=== PATIENT | female | born 1930 | race Caucasian/White ===

== ENCOUNTER 2016-12-21 18:11 | Emergency (ER) | payer MEDICARE, BC ==
--- OUTSIDE RECORDS SUMMARY | 2016-12-21 18:33 | XMS REPORT | Continuity of Care Document ---
:1930 Author Organization [facility] ([facility]) Address [address] [place] [address] Phone [phone] Care Team Providers Name Role Phone EleazarRicardo ramirez Primary Care Provider [phone] Source Comments This disclosure is being made pursuant to the Care Everywhere program, applicable federal and state laws, and may not contain all informaitonavailable regarding this patient.[facility] ([facility]) Active Allergies and Adverse Reactions Allergen Noted Date Severity Reactions Comments Codeine 10/04/2013 Nausea & Vomiting Current Medications Prescription Sig. Disp. Refills Start Date End Date Status aMILoride-hydrochlor Take 1 Tab by Active othiazide 5-50 mg mouth daily. Take per tablet with food. docusate 100 mg Take 100 mg by Active capsule mouth 2 times daily as needed. lisinopril 40 mg Take 40 mg by Active tablet mouth daily. omeprazole 20 mg Take 20 mg by Active extended release mouth daily. capsule sennosides 8.6 mg Take 2 tablets by Active tablet mouth 2 times daily. polyethylene glycol 08/15/2016 Active 3350 (MIRALAX) 17 gram/dose powder NITROSTAT 0.[address] 1 tablet 1 08/11/2016 Active tablet under tongue every 5 minutes for 3 doses. If no relief call 911 levothyroxine 150 Take 150 mcg by 1 06/03/2016 Active mcg tablet mouth daily. lactulose 10 g/15 mL TAKE ONE 1 07/30/2016 Active solution TABLESPOON BY MOUTH NEEDED isosorbide Take 30 mg by 0 08/08/2016 Active mononitrate 30 mg CR mouth daily. tablet clopidogrel 75 mg Take 75 mg by 0 08/08/2016 Active tablet mouth daily. carvedilol 3.125 mg Take 3.125 mg by 0 08/08/2016 Active tablet mouth 2 times daily. aspirin 81 mg EC Take 81 mg by Active tablet mouth daily. aspirin 325 mg EC take 1 tablet 01/11/2013 11/27/2016 Discontinued tablet 81mg daily rosuvastatin 10 mg Take 10 mg by 0 08/08/2016 11/26/2016 Discontinued tablet mouth at bedtime. Active Problems Problem Noted Date Colon cancer 10/17/2013 Most Recent Encounters Date Type Specialty Providers Description 11/26/2016 Office Visit [facility]issy Shabazz, Dx: Aortic valve DO stenosis, unspecified etiology (Primary Dx) 10/14/2016 Office Visit [facility] Mary Theodore MD Chief Comp: Patient Reported Reason For Visit Social History Tobacco Use Types Packs/Day Years Used Date Former Smoker Cigarettes Smokeless Tobacco: Never Used Last Filed Vital Signs Vital Sign Reading Time Taken Blood Pressure 140/70 11/26/2016 9:50 AM [facility] Pulse 60 11/26/2016 9:50 AM [facility] Temperature 36.3 C (97.3 F) 10/17/2013 12:27 PM [facility] Respiratory Rate 16 10/17/2013 12:27 PM [facility] Height 1.626 m (5' 4") 11/26/2016 9:50 AM [facility] Weight 50.803 kg (112 lb) 11/26/2016 9:50 AM [facility] Body Mass Index 19.22 11/26/2016 9:50 AM [facility] Oxygen Saturation - - Plan of Care Date Type Specialty Providers Description 03/18/2017 Appointment [facility] Krissy Shabazz, Chief Comp: Patient DO Reported Reason For [address] [place] [address] [phone] (Fax) Health Maintenance Due Date Last Done Comments Hepatitis B Vaccine (1 of 3 - Primary Series) 1930 Tdap Vaccine 1941 Lipid Disorder Screening 1948 Td Vaccine 1948 Colonoscopy 12/22/1980 Zoster Vaccine 1990 Osteoporosis Screening (DXA Bone Density) 12/24/1995 Pneumococcal Vaccine (1 of 2 - PCV13) 12/24/1995 Influenza Vaccine: Seasonal (#1) 05/05/2016 Results from Last 3 Months Not on file
--- NOTE | 2016-12-21 18:51 | ERNOTE ---
Medical Problem HPI - General Time Seen by Provider: 12/21/16 18:26 Source: patient, family Exam Limitations: no limitations - Immun/Allergies/Home Medications Immunizations: IMMUNIZATION HX Immunizations Up to Date Yes History of Influenza Vaccine Yes Hx Pneumococcal Vaccination Yes Allergies/Adverse Reactions: Allergies codeine Adverse Reaction (Mild, Verified 08/05/16 10:44) Nausea Home Medications: HOME MEDICATIONS Aspirin [Aspirin Enteric Coated] 81 mg PO DAILY 12/21/16 [Last Taken Unknown] Carvedilol [Coreg] 3.125 mg PO BID 12/21/16 [Last Taken Unknown] Clopidogrel Bisulfate [Plavix] 75 mg PO DAILY 12/21/16 [Last Taken Unknown] Docusate Sodium [Colace] 100 mg PO DAILY 12/21/16 [Last Taken Unknown] Hydrochlorothiazide [Hydrodiuril] 25 mg PO DAILY 12/21/16 [Last Taken Unknown] Isosorbide Mononitrate [Imdur] 30 mg PO DAILY 12/21/16 [Last Taken Unknown] Levothyroxine Sodium [Synthroid] 150 mcg PO DAILY 12/21/16 [Last Taken Unknown] Lisinopril [Zestril] 40 mg PO DAILY 12/21/16 [Last Taken Unknown] Nitroglycerin 0.4 mg SL Q5MIN 12/21/16 [Last Taken Unknown] Omeprazole [Prilosec] 20 mg PO DAILY 12/21/16 [Last Taken Unknown] Polyethylene Glycol 3350 [Miralax] 17 gm PO BID 12/21/16 [Last Taken Unknown] Sennosides [Senokot] 2 tab PO DAILY 12/21/16 [Last Taken Unknown] - History of Present History Narrative: Patient woke up during the night around 02:00 to go to the bathroom when she noticed that her heart was beating fast. She used her blood pressure machine which showed a HR in 120-130's. She checked it repeatedly and eventually took a nitro and the palpitations resolved ( she never had any chest pain), heart racing lasted for about 2 hours. Since then she has checked her blood pressure frequently and has had multiple high readings, and essentially comes now for the high blood pressure, last reading at home 190/115, she took her evening medication about an hour prior to coming here. She currently has not symptoms. In August 2016 she was diagnosed with a MS, choose not to have any further intervention but was treated medically. Review of Systems - Review of Systems Constitutional: Absent: recent illness, fever ENT: Absent: nose congestion, sore throat Respiratory: Present: shortness of breath - occasionally with activity. Absent : cough Cardiology: Present: See HPI, palpitations. Absent: chest pain Gastrointestinal/Abdominal: Absent: nausea, vomiting, diarrhea, abdominal pain Genitourinary: Absent: frequency Musculoskeletal: Present: no symptoms reported Skin: Present: no symptoms reported Neurological: Absent: weakness, numbness - Patient's Past Medical History Patient History - Medical: Anemia, Chronic Pain, Hypothyroidism, Other Patient History - Cardiac/Respiratory: Coronary Heart Disease, CHF, Hypertension Patient History - Cancer: Colon, Skin Patient History - Surgical Procedures: Back Surgery, Cataracts, Colon Resection , Colonoscopy, EGD, Other Patient History - Other: None - Family History Mother Family History - Medical: , Diabetes Type 1 Family History - Cardiac/Respiratory: Coronary Heart Disease, Hypertension Father Family History - Medical: , History Unknown - Social History Living Situations: home Abuse History: No History of abuse Psych History: No pertinent hx Does anyone smoke in the home?: No Smoking Status: Never smoker Alcohol Use: none Drug Use: none - Immunizations Immunizations Up to Date: Yes Hx Pneumococcal Vaccination: Yes History of Influenza Vaccine: Yes Physical Exam - Physical Exam General Appearance: Present: wd/wn, alert, no apparent distress Eye Exam: Normal inspection: bilateral, PERRL: bilateral Respiratory: Present: no respiratory distress, normal breath sounds, no accessory muscle use, lungs clear Cardiovascular/Chest: Present: regular rate, rhythm, no murmur Gastrointestinal/Abdominal: Present: normal bowel sounds, nontender, soft Extremity Exam: Present: pedal edema - trace bilateral Neurological Exam: Present: alert, oriented, normal mood/affect Skin Exam: Present: normal color, warm/dry ED Progress - Vital Signs Patient's Vital Signs:: I have reviewed the patient's vital signs. Vital Signs: Vital Signs 12/21/16 18:27 Temperature 36.2 C L Pulse Rate 73 Respiratory 18 Rate Blood Pressure 156/96 O2 Sat by Pulse 99 Oximetry - EKG EKG: NSR - sinusbrady 56, SC - 1st degree AV block, unchanged from 08/20 except for rate EKG read: Interp. by me Departure - Departure Clinical Impression: Palpitation Hypertension Qualifiers: Hypertension type: essential hypertension Qualified Code(s): I10 - Essential ( primary) hypertension Disposition: Home self-care Condition: Good Instructions: Hypertension, [id number] Additional Instructions: take all your medications as instructed if your heart races again and does not go back to normal rhythm on its own come to the ER Referrals: Ricardo Bush MD [Primary Care Provider] -
[2016-12-21 19:07] VITALS: BP 134/71
== END 2016-12-21 19:09 | disposition home or self-care (01) ==
LOC: ER 18:11
DX: R00.2 Palpitations (principal); I10 Essential (primary) hypertension; E03.9 Hypothyroidism, unspecified; I50.9 Heart failure, unspecified; I25.2 Old myocardial infarction; G89.29 Other chronic pain

== ENCOUNTER 2017-05-31 11:18 | Emergency (ER) | payer MEDICARE, BC ==
--- NOTE | 2017-05-31 12:23 | ERNOTE ---
Neuro HPI ER Record Date of Service: 05/31/17 Presenting Symptoms: other - syncopal episode Time Seen by Provider: 05/31/17 11:42 Source: patient - here with family leigh ann Immunizations: IMMUNIZATION HX Immunizations Up to Date Yes History of Influenza Vaccine Yes Hx Pneumococcal Vaccination Yes Allergies/Adverse Reactions: Allergies Allergy/AdvReac Type Severity Reaction Status Date / Time codeine AdvReac Mild Nausea Verified 08/05/16 10:44 Home Medications: HOME MEDICATIONS Aspirin [Aspirin Enteric Coated] 81 mg PO DAILY 12/21/16 [Last Taken Unknown] Carvedilol [Coreg] 3.125 mg PO BID 12/21/16 [Last Taken Unknown] Clopidogrel Bisulfate [Plavix] 75 mg PO DAILY 12/21/16 [Last Taken Unknown] Docusate Sodium [Colace] 100 mg PO DAILY 12/21/16 [Last Taken Unknown] Isosorbide Mononitrate [Imdur] 30 mg PO DAILY 12/21/16 [Last Taken Unknown] Levothyroxine Sodium [Synthroid] 150 mcg PO DAILY 12/21/16 [Last Taken Unknown] Lisinopril [Zestril] 40 mg PO DAILY 12/21/16 [Last Taken Unknown] Nitroglycerin 0.4 mg SL Q5MIN 12/21/16 [Last Taken Unknown] Omeprazole [Prilosec] 20 mg PO DAILY 12/21/16 [Last Taken Unknown] Polyethylene Glycol 3350 [Miralax] 17 gm PO BID 12/21/16 [Last Taken Unknown] Sennosides [Senokot] 2 tab PO DAILY 12/21/16 [Last Taken Unknown] Furosemide 20 mg PO 3XW 05/31/17 [Last Taken Unknown] L. Acidophilus/L. Rhamnosus [Probiotic 15 Billion Cell Cap] 1 each PO DAILY # 100 capsule 05/31/17 [Last Taken Unknown] Lactulose [Enulose] 60 ml PO QID 05/31/17 [Last Taken Unknown] - History of Present Illness Narrative: Patient is an 86-year-old female established patient of Dr. Bush presents today with a syncopal episode at [facility]. She remembers the events she states that she got very hot when she was sitting in the PICU she took her jacket off and was standing up for the Gospel and then ended up next thing she knew she opened her eyes and someone was tearing out her asking her if she was okay she was sitting next to her niece who was with her stated that her eyes were wide open but they became pinpoint and she was out for a few seconds she denied any associated chest pain or shortness of breath she denied any headaches dizziness vision changes she denied any neurologic deficits at the time of the episode. There is no evidence of urinary or stool incontinence that she had no abnormal tonic-clonic movements. Date (Duration): 05/31/17 Time (Timing): 10:45 Last Date Known Well: 05/31/17 Last Time Known Well: 10:30 Onset: sudden onset Severity: moderate Context: other - no fall was noted she immediately was sat down and lay down across the PICU at [facility]. - Character of Deficits New weakness: Present: other - no new weakness or asymmetry of neurologic findings. Altered sensation: Present: other - loss of consciousness was transient she was not amnestic of events. Additional Deficits: Present: decrease ability to stand, other - patient does have known debility and difficulty with walking long distances. She denied any associated cardiovascular symptoms such as shortness of breath or chest pain. Baseline Cognition: Present: alert, oriented x 4 Baseline Gait: Present: other - baseline gait requires assistance of one Associated Symptoms: Reports: other - patient had a brief loss of consciousness witnessed. Prior Treament: Reports: recently hospitalized - patient was admitted in December for CO. She did not have a cardiac catheterization but she did have a confirmation of a nuclear medicine stress test. Review of Systems - Narrative Narrative: Please see the HPI portion as well. - Review of Systems Constitutional: Present: See HPI EYE: Present: no symptoms reported ENT: Present: no symptoms reported Respiratory: Present: no symptoms reported Cardiology: Present: no symptoms reported Gastrointestinal/Abdominal: Present: no symptoms reported Genitourinary: Present: frequency, other - resolving urinary tract infection completing antibiotic cephalexin currently. Musculoskeletal: Present: other - chronic lower extremity debilitated due to arthritis. Skin: Present: no symptoms reported Neurological: Present: no symptoms reported Endocrine: Present: no symptoms reported Hematologic/Lymphatic: Present: easy bruising - reports easy bruising due to anticoagulation With Plavix All Other Systems: All systems neg except as marked - Patient's Past Medical History Patient History - Medical: Anemia, Chronic Pain, Hypothyroidism, Other Patient History - Cardiac/Respiratory: Coronary Heart Disease, CHF, Hypertension Patient History - Cancer: Colon, Skin Patient History - Surgical Procedures: Back Surgery, Cataracts, Colon Resection , Colonoscopy, EGD, Other Patient History - Other: None - Family History Mother Family History - Medical: , Diabetes Type 1 Family History - Cardiac/Respiratory: Coronary Heart Disease, Hypertension Father Family History - Medical: , History Unknown - Social History Living Situations: alone Abuse History: No History of abuse Psych History: No pertinent hx Does anyone smoke in the home?: No Smoking Status: Former smoker Have you smoked in the past 12 months: No Do you dip or chew tobacco: No Alcohol Use: none Drug Use: none - Immunizations Immunizations Up to Date: Yes Hx Pneumococcal Vaccination: Yes History of Influenza Vaccine: Yes Monty Coma Scale - Assess Eye Opening: Spontaneous Motor: Obeys Commands Verbal: Oriented - Total Coma Scale Total: 15 Initial Stroke Assessment - Date/Time of assessment Stroke Scale Date: 05/31/17 Stroke Scale Time: 10:30 - NIH Stroke Scale LOC Questions (Year and Age): Answers both correctly LOC Commands (open/close eyes/fist): Performs both correctly Lateral Gaze Paresis: None Visual Field Loss: No visual loss Facial Palsy: Normal movement Right Arm Motor (10 sec hold): No drift Left Arm Motor (10 sec hold): No drift Right Leg Motor (5 sec hold): No drift Left Leg Motor (5 sec hold): No drift Limb Ataxia (finger/nose heel/britt): Absent If present, ataxia in:: Right arm Sensory Loss (pinprick arms/legs/face): No sensory loss Language Aphasia (description/naming/reading): No aphasia; normal Dysarthria (speech clarity): Normal articulation Neglect Inattention (visual/tactile/auditory/spatial/person): No neglect ED Progress - Results and Orders Patient's Lab Results:: I have reviewed the patient's lab results. Results and Orders: Laboratory Tests 05/31/17 05/31/17 05/31/17 12:17 12:17 Unknown WBC 5.9 RBC 3.73 L Hgb 11.8 L Hct 34.2 L MCV 91.7 MCH 31.6 H MCHC 34.5 RDW 15.7 H Plt Count 247 MPV 8.4 Immature Gran % (Auto) 0.30 Immature Gran # (Auto) 0.02 Neutrophils % 67.0 Lymphocytes % 18.3 L Monocytes % 11.0 H Eosinophils % 2.0 Basophils % 1.4 H Nucleated RBC % 0.0 Neutrophils # 4.0 Lymphocytes # 1.1 L Sodium 124 L Plasma Sodium 124 L Potassium 4.0 Chloride 89 L Carbon Dioxide 26.5 Anion Gap 12.5 BUN 20 Creatinine 0.98 Est GFR (Non-Af Amer) 57 L BUN/Creatinine Ratio 20.4 Random Glucose 115 H Calcium 8.8 Calcium Adj for Albumin 8.6 Total Bilirubin 0.6 AST 21 ALT 16 L Alkaline Phosphatase 46 L Troponin I 0.024 B-Natriuretic Peptide 922 H Total Protein 6.7 Albumin 3.8 Urine Color Yellow Urine Appearance Clear Urine pH 7.0 Ur Specific [place] 1.010 Urine Protein Negative Urine Glucose (UA) Negative Urine Ketones Negative Urine Blood Negative Urine Nitrate Negative Urine Bilirubin Negative Urine Urobilinogen Normal Ur Leukocyte Esterase Negative Urine RBC None seen Urine WBC None seen Ur Epithelial Cells None seen Urine Bacteria None seen Urine Culture Comments Culture to follow - Vital Signs Patient's Vital Signs:: I have reviewed the patient's vital signs. Vital Signs: Vital Signs 05/31/17 11:25 Temperature 36.4 C L Pulse Rate 53 L Respiratory 16 Rate Blood Pressure 176/74 O2 Sat by Pulse 100 Oximetry Orthostatic vital signs laying down a pulse 54 blood pressure 154/77, sitting pulse 62 blood pressure 167/84, standing 162/90, pulse 62 no lightheaded symptoms with standing. Patient is currently stable for discharge orthostatic blood pressures are within normal limits and will recommend follow-up with her PCP she does have a cardiology follow-up in June. - EKG EKG read: Reviewed by me EKG Comments: EKG done at 11:31 AM. Rate 52, sinus bradycardia, borderline left axis deviation normal QTC 390 ms no significant ectopy no STEMI borderline ECG. Compared with previous EKG from 12/21/2016 which demonstrated a sinus bradycardia with first-degree AV block. - X-Ray X-Ray #1 X-Ray: chest Interpretation: Reviewed by me X-ray Comments: [facility] PATIENT RADIOLOGY STUDY REPORT Patient Patient Name:SONIA LARA Date: 1930 Sex: F Order Number: [id number] Unique Exam ID: [id number] Exam Requested: CXRSINGLE - Chest Single View * Date Scheduled: 05-31-2017 01:30 PM Study Priority: Requesting Service: Requesting Physician: Anne Gautam Reason for Exam: SOB, TACHYCARDIA Radiological Report : [place] [address] NAME: SONIA LARA : 1930 MR #: [id number] CC: Anne Gautam DO LOC: ER ADM DATE: X-RAY REPORT [id number] RAD/Chest Single View * Exam Date: 05/31/2017 13:30 Ordering Physician: Anne Gautam HISTORY: SOB, TACHYCARDIA TECHNIQUE: Single portable AP view of the chest was obtained at 1339 hours. COMPARISONS: 12/10/2016 FINDINGS: Chest Single View *: Somewhat hyperinflated lungs, with hyperlucent lungs, stable. Consider underlying COPD/emphysema. No definite consolidation. Pulmonary vasculature is normal. No pneumothorax or pleural fluid collections apparent. Cardiac size within normal limits for technique. Tortuosity of the thoracic aorta, stable. Trachea is in normal position given patient positioning. Osseous structures are grossly intact. Decreased mineralization of bone suggestive of underlying osteopenia or osteoporosis. Patient has kyphoplasty change of the lower thoracic spine. IMPRESSION: 1. No focal acute cardiopulmonary finding. 2. Additional comments are as above. Electronically signed by Cricket Llanes M.D.. Cricket Llanes MD Dict: 05/31/17 1448 Typed: 05/31/17 1448/ 05/31/17 1450 05/31/17 1455 Approved by: CRICKET LLANES Approval Date: 05-31-2017 Approval Time: 02:48 PM THIS REPORT WAS RECEIVED FROM THE [employer] SYSTEM - Progress/Reassessment Chief Complaint: Loss of Consciousness Progress:: Improved - patient's orthostatic vital signs demonstrated no evidence of orthostatic hypotension. Please see nursing record for vital signs. Plan - Plan Plan: Patient was stable for discharge: Discharge instructions were discussed with the family her knees and patient. Departure Clinical Impression: Hyponatremia, laxative overuse, Orthostatic hypotension - Departure Disposition: Home self-care Condition: Stable Instructions: Rehydration, Elderly Additional Instructions: discontinue use of lactulose it is making you hyopnatremic, use probiotic and franck seeds with tart jean baptiste juice or grape juice Referrals: Ricardo Bush MD [Primary Care Provider] - Prescriptions: L. Acidophilus/L. Rhamnosus [Probiotic 15 Billion Cell Cap] 1 each PO DAILY # 100 capsule
[2017-05-31 12:26] LABS: Hematocrit 34.2 % (37.0-47.0); Hemoglobin 11.8 gm/dL (12.5-16.0); Mean Cell Volume 91.7 fl (78-100); Mean Corpuscular Hemoglobin 31.6 pg (27-31); Mean Corpuscular Hgb Conc 34.5 g/dl (32-36); Mean Platelet Volume 8.4 fl (6.0-9.5); Platelet Count 247 K/mm3 (150-450); Red Blood Count 3.73 M/mm3 (4.2-5.4); Red Cell Distribution Width 15.7 % (11.5-14.0); White Blood Count 5.9 K/mm3 (4.0-10.5)
[2017-05-31 12:39] LABS: Urine Bilirubin Negative (NEGATIVE); Urine Blood Negative /ul (NEGATIVE); Urine Ketone Negative (NEGATIVE); Urine Nitrite Negative (NEGATIVE); Urine Protein Negative (NEGATIVE); Urine Urobilinogen Normal (NORMAL)
[2017-05-31 12:41] LABS: Urine Appearance Clear; Urine Color Yellow
[2017-05-31 12:43] LABS: Troponin I 0.024 ng/ml (0.00-0.10)
[2017-05-31 12:45] LABS: Albumin * 3.8 gm/dl (3.4-5.0); Anion Gap 12.5 mmol/L (6.8-13.8); BUN/Creatinine Ratio 20.4 (9.0-21.6); Bilirubin, Total 0.6 mg/dL (0.0-1.1); Ca. Corrected For Albumin 8.6 mg/dL (8.4-10.2); Calcium * 8.8 mg/dL (7.9-10.9); Carbon Dioxide 26.5 mmol/L (24-32.6); Total Protein 6.7 gm/dL (6.2-8.2)
[2017-05-31 12:46] LABS: Urine Bacteria None Seen; Urine RBC None Seen /hpf (0-5); Urine WBC None Seen /hpf (0-5)
[2017-05-31 13:54] VITALS: BP 154/77
== END 2017-05-31 14:13 | disposition home or self-care (01) ==
LOC: ER 11:18
DX: E87.1 Hypo-osmolality and hyponatremia (principal); I95.1 Orthostatic hypotension; T47.2X5A Adverse effect of stimulant laxatives, initial encounter; Z85.038 Personal history of other malignant neoplasm of large intestine; Z85.828 Personal history of other malignant neoplasm of skin; E03.9 Hypothyroidism, unspecified; I10 Essential (primary) hypertension; I50.9 Heart failure, unspecified; Z87.891 Personal history of nicotine dependence; Z79.899 Other long term (current) drug therapy

== ENCOUNTER 2017-08-24 11:18 | Emergency (ER) | payer MEDICARE, BC ==
[2017-08-24] MEDS ORDERED: IBUPROFEN 600 MG TABLET PO ONE (14:44)
[2017-08-24] MEDS ORDERED: IBUPROFEN 600 MG TABLET ONE ×2 (14:44→15:09)
--- NOTE | 2017-08-24 15:26 | ERNOTE ---
Lower Extremity HPI - Narrative Date of Service: 08/24/17 - General Lower Extremities Pain: hip: left, ankle: left Time Seen by Provider: 08/24/17 11:35 Source: patient Exam Limitations: no limitations - Immun/Allergies/Home Medications Immunizations: IMMUNIZATION HX Immunizations Up to Date Yes History of Influenza Vaccine Yes Hx Pneumococcal Vaccination Yes Allergies/Adverse Reactions: Allergies Allergy/AdvReac Type Severity Reaction Status Date / Time codeine AdvReac Mild Nausea Verified 08/24/17 11:44 Home Medications: HOME MEDICATIONS Aspirin [Aspirin Enteric Coated] 81 mg PO DAILY 12/21/16 [Last Taken Unknown] Carvedilol [Coreg] 3.125 mg PO BID 12/21/16 [Last Taken Unknown] Clopidogrel Bisulfate [Plavix] 75 mg PO DAILY 12/21/16 [Last Taken Unknown] Docusate Sodium [Colace] 100 mg PO DAILY 12/21/16 [Last Taken Unknown] Isosorbide Mononitrate [Imdur] 30 mg PO DAILY 12/21/16 [Last Taken Unknown] Levothyroxine Sodium [Synthroid] 150 mcg PO DAILY 12/21/16 [Last Taken Unknown] Lisinopril [Zestril] 40 mg PO DAILY 12/21/16 [Last Taken Unknown] Nitroglycerin 0.4 mg SL Q5MIN 12/21/16 [Last Taken Unknown] Omeprazole [Prilosec] 20 mg PO DAILY 12/21/16 [Last Taken Unknown] Polyethylene Glycol 3350 [Miralax] 17 gm PO BID 12/21/16 [Last Taken Unknown] Sennosides [Senokot] 2 tab PO DAILY 12/21/16 [Last Taken Unknown] Furosemide 20 mg PO 3XW 05/31/17 [Last Taken Unknown] L. Acidophilus/L. Rhamnosus [Probiotic 15 Billion Cell Cap] 1 each PO DAILY # 100 capsule 05/31/17 [Last Taken Unknown] Lactulose [Enulose] 60 ml PO QID 05/31/17 [Last Taken Unknown] - History of Present Illness Narrative: patient presents to the ED with left hip pain after a fall. She relates that she was in the parking lot at the store and lost her balance, falling and landing on her left hip. SHe also has some mild left ankle pain. No head injury. No other injuries. No acute focal N/T/W. no acute neck or back pain. No PC or SOB> Pain can be severe with weight bearing. Better with rest. Occurred: just prior to arrival Location of Incident: other - parking lot Method of Injury: Reports: fell, direct blow Reason for Fall: Reports: lost balance Loss of Consciousness: Reports: no loss of consciousness Modifying Factors - (Improves): Reports: rest Modifying Factors - (Worsens): Reports: movement Associated Symptoms: Denies: headache, other injuries Other Injuries: Denies: head, neck, back, chest, abdomen Subsequent Symptoms: Denies: sensory loss, numbness, motor loss Prior Treament: Denies: recently seen Review of Systems - Review of Systems Constitutional: Absent: fever ENT: Absent: sore throat Respiratory: Absent: shortness of breath Cardiology: Absent: chest pain Gastrointestinal/Abdominal: Absent: abdominal pain Genitourinary: Absent: dysuria All Other Systems: All systems neg except as marked - Patient's Past Medical History Patient History - Medical: Anemia, Chronic Pain, Hypothyroidism, Other Patient History - Cardiac/Respiratory: Coronary Heart Disease, CHF, Hypertension Patient History - Cancer: Colon, Skin Patient History - Surgical Procedures: Back Surgery, Cataracts, Colon Resection , Colonoscopy, EGD, Other Patient History - Other: None LMP (females 10-50): post - Family History Mother Family History - Medical: , Diabetes Type 1 Family History - Cardiac/Respiratory: Coronary Heart Disease, Hypertension Father Family History - Medical: , History Unknown - Social History Living Situations: home Abuse History: No History of abuse Psych History: No pertinent hx Smoking Status: Former smoker Alcohol Use: none Drug Use: none - Immunizations Immunizations Up to Date: Yes Hx Pneumococcal Vaccination: Yes History of Influenza Vaccine: Yes Physical Exam - Physical Exam General Appearance: Present: alert, no apparent distress Head Exam: Present: normal inspection, no evidence of injury Eye Exam: Normal inspection: bilateral, PERRL: bilateral Ears, Nose, Throat: Present: normal ENT inspection Neck: Present: normal inspection, nontender. Absent: tender posterior midline Respiratory: Present: no respiratory distress, normal breath sounds, no accessory muscle use, lungs clear Cardiovascular/Chest: Present: regular rate, rhythm, normal peripheral pulses Gastrointestinal/Abdominal: Present: normal bowel sounds, nontender, nondistended, soft Back Exam: Present: no vertebral tenderness Extremity Exam: Present: normal inspection, other - strong DP pulse. Pain with movment left hip and palpation lateral hip. T[place]ress mild left ankle,. no clear foot tenderness. No knee or orhter femiur/tib-fib tenderness.. No other extremity pain or tenderness. Neurological Exam: Present: alert, normal mood/affect, no motor/sensory deficits Skin Exam: Present: normal color, warm/dry ED Progress - Vital Signs Patient's Vital Signs:: I have reviewed the patient's vital signs. Vital Signs: Vital Signs 08/24/17 08/24/17 08/24/17 11:20 12:29 13:09 Temperature 36.8 C Pulse Rate 52 L 59 L 62 Respiratory 16 16 16 Rate Blood Pressure 175/83 171/75 181/76 O2 Sat by Pulse 99 98 99 Oximetry 08/24/17 08/24/17 13:31 14:20 Temperature 36.6 C Pulse Rate 60 66 Respiratory 16 16 Rate Blood Pressure 170/72 180/79 O2 Sat by Pulse 99 96 Oximetry - X-Ray X-Ray #1 X-Ray: hip Interpretation: Interp. by me X-ray Comments: I reviewed official radiology report X-Ray #2 X-Ray: ankle Interpretation: Interp. by me X-ray Comments: I reviewed official radiology reprot X-Ray #3 X-Ray: foot Interpretation: Interp. by me X-ray Comments: I reviewed official radiology report - CT/Ultrasound CT/Ultrasound Narrative: I reviewed CT report per radioology\ - Progress/Reassessment Chief Complaint: Hip Pain/Injury Progress Note-Subjective: 08/24/17 15:[address] Hicks and reviewed CT and x-rays with him. He recommends post-op shoe and toe-touch weight bearing with walker and office f/u. Patient difficult ambulation, cannot go home at this time given she lives alone. Skilled arranged for her. 08/24/17 15:51 Departure Clinical Impression: Pelvis fracture, Musculoskeletal pain - Departure Disposition: The [facility] Condition: Stable Instructions: Simple Pelvic Fracture, Adult Additional Instructions: I heve reviewed your x-rays with Dr Hicks. He wants to see you in the office , call today for an appointment time. Walker, flat bottomed shoe. REturn for increased pain, numbness, tingling, weakness or if your condition worsens or changes in any way. Referrals: Ricardo Bush MD [Primary Care Provider] -
[2017-08-24 16:13] VITALS: BP 173/88
== END 2017-08-24 16:16 ==
LOC: ER 11:18
DX: S32.9XXA Fracture of unspecified parts of lumbosacral spine and pelvis, initial encounter for closed fracture (principal); M79.1 Myalgia; W01.0XXA Fall on same level from slipping, tripping and stumbling without subsequent striking against object, initial encounter; Y93.01 Activity, walking, marching and hiking; Y92.512 Supermarket, store or market as the place of occurrence of the external cause